=== PATIENT | male | born 1985 | race Caucasian/White ===

== ENCOUNTER 2023-12-24 06:12 | Day surgery (SDC) | payer OTHER, SELFPAY ==
[2023-12-24] VITALS (10 sets, daily range): BP systolic 112–125; BP diastolic 61–73; BMI 25.4
[2023-12-24] MEDS: TYLENOL 1000 MG PO (06:29)
[2023-12-24] MEDS: NORMOSOL-R 1000 IV (06:32)
--- NOTE | 2023-12-24 09:00 | W.SUR.PREOP ---
Pre-Operative Surgical Note
-
I have examined this patient prior to the performance of the scheduled procedure.
The patient's condition is unchanged from the time of the current History and
Physical and the patient is able to undergo the scheduled procedure.
--- NOTE | 2023-12-24 09:00 | W.IMMPOSTOP ---
Surgical Immed Post Op Note
-
Primary Surgeon: Crescencio Arnold MD
Assisting Surgeon: None
Pre-op Diagnosis: Left inguinal hernia, reducible
Post-op Diagnosis: Same
Procedure Performed: robotic left inguinal hernia repair with mesh (THEODORE approach)
Anesthesia Type: General
Specimen / Cultures: None
Estimated Blood Loss: 7 cc
Complications: None
Operative Findings: Small left indirect inguinal hernia, no direct or femoral components. Small Cord lipoma identified and removed. Floor reinforced with a large left Bard 3D max. Previous right-sided repair noted, mesh visibly folded under the
peritoneum but no evidence of recurrence
--- NOTE | 2023-12-24 09:06 | OR.RPT ---
Operative Report
Operative Report
Patient Name: Jerry Howard
: 1985
Date of Operation: 12/24/2023
Preoperative Diagnosis: Reducible Inguinal hernia, left
Postoperative Diagnosis: Same
Procedure(s):
Robotic Inguinal Hernia Repair with mesh, (THEODORE approach)
Surgeon(s):
Dr. Arnold
Sports Announcer(s):
BRYAN Farfan
Anesthesia: General
Estimated Blood Loss: 7 cc
Urine Output: None
Drains/Lines/Implants: Large 3D Max Bard mid weight mesh
Specimens: None
Indication for surgery: The patient has a history of groin pain and noted on exam to have a Left inguinal Hernia. Following review of therapeutic options they has elected to undergo a minimally invasive repair.
Findings at the time of surgery:
Patient had an Indirect inguinal Hernia. The inguinal floor was reinforced with a large BARD 3D max mid-weight mesh. His previous right-sided repair was noted, part of the mesh was folded underneath the peritoneum but there was no evidence of
recurrence.
Details of the operation:
The patient was brought to the Operating Room and placed in the supine position with the arms tucked. IV antibiotics were infused and Venodyne stockings placed. Following uneventful induction of general endotracheal anesthesia, an orogastric tube
were placed. The abdomen was prepped and draped in the usual sterile fashion. The abdomen was entered using a Veress technique which required 2 pass(es), pneumoperitoneum to 15 mmHg was obtained without difficulty. A 8mm trochar was passed through
the abdominal wall roughly 20 cm cephalad to the inguinal canal at his previous robotic port site. We then confirmed that no inadvertent injury was made while passing the trocar or Veress needle. We then placed two additional 8 mm ports in the
left upper and right upper quadrants, again at his previous incision sites. We then docked the robot with a Prograsper in the left hand port and monopolar scissors in the right. Small indirect inguinal defect was visibly noted. We did inspect the
right side which showed no sign of recurrence but clearly part of the tail of the mesh had folded underneath the peritoneum. We then began by creating a flap at the level of the ASIS laterally working our way medially to the medial umbilical fold.
Staying onto the peritoneum we were able to circumferentially dissect around the hernia sac and and peel it off of the underlying spermatic cord and testicular vessels, taking care to preserve them. Medially we identified the midline pubis as well
as Khurram's ligament and ensured to dissect 2 cm below the pubic rim over the bladder. After exposure of the entire myopectineal orifice we identified and reduced: A medium sized indirect inguinal hernia, no direct inguinal hernia, no femoral
hernia, a medium cord lipoma, which was removed
During placement of the mesh a small vessel near the pelvic brim just underneath coopers ligament began bleeding, the adamson mortise was quickly controlled with electrocautery but as a extra precaution a 2 x 2 cm piece of Surgicel was placed over
the area. We then fixated a large 3D max mesh with a 2-0 Vicryl stitch at coopers medially and superior laterally. The flap was then closed with a running 2-0 barbed monocryl suture ensuring that the tail was cut flush with the medial fat pad so
that no barbs were exposed. During the closure of the flap an Angiocath was inserted and 30 cc of quarter percent Marcaine was instilled. The area in the flap cavity was then evacuated of air confirming that the mesh was flush and there were no
folds. All needles and instruments were then removed and the robot was undocked. The abdomen was then desufflated, and pneumoperitoneum evacuated. All skin sites were then closed with 4-0 Monocryl followed by Dermabond. Counts were correct and
overall, the patient tolerated the procedure well and was taken to the Recovery Room postoperatively in stable condition.
I was the attending physician and performed the procedure with assistance of the HOSPITAL CLEANER above. I was present for all portions of the case
Crescencio Arnold MD
[2023-12-24] MEDS: DILAUDID 0.25 MG IV ×2 (09:19→09:31)
== END 2023-12-24 10:50 | disposition home or self-care (01) ==
LOC: SDS 06:12
PROVIDERS: ATTENDING PHYSICIAN Surgery
DX: K40.90 Unilateral inguinal hernia, without obstruction or gangrene, not specified as recurrent (principal)
CPT/HCPCS: 49650; C1781

== ENCOUNTER 2025-06-06 12:27 | Emergency (ER) | payer OTHER, SELFPAY ==
[2025-06-06 12:28] VITALS: BP 131/91
--- NOTE | 2025-06-06 13:45 | ED.GENMED ---
History of Present Illness
General
Chief Complaint: Musculo-Skeletal Complaint
Source: patient
Exam Limitations: none
Time Seen by Provider: 06/06/25 13:24
Nursing documentation reviewed up to this point in time: agreed with
History of Present Illness
History of Present Illness:
Patient is a 40-year-old male who presents the emergency department left ankle pain after mechanical fall while running earlier today. Patient reports taking his dog for a run when he was pulled in the opposite direction inverting his left ankle. He
remembers hearing a 'crunch'. He did not hit his head or sustain any other injuries.
Patient has been unable to bear weight on left foot since fall due to pain. He has been using crutches which he had at home. No numbness/tingling in LLE. No pain in left knee.
No other concerns today.
Past History
Social History
Tobacco: Non-smoker
Employment: Employed
Review of Systems
Review of Systems
Allergies reviewed?: Yes
All Other Systems: ROS reviewed and negative except as documented in HPI and ROS
Phy Exam
Physical Exam
Physical Exam:
Vitals: Patient's vital signs are stable. Afebrile
General: Patient is well appearing, no acute distress
Skin: Warm and dry, no rashes or lesions
Head: Normocephalic, atraumatic
Throat: Protecting airway
Neck: Normal ROM, no cervical spine tenderness
Cardiac: Regular rate
Pulm: No apparent respiratory distress
Abdomen: Nondistended
Extremities: Minimal swelling at medial aspect of left ankle. No obvious deformity of ecchymoses. Mild tenderness to left medial malleolus without pain to left lateral malleolus, midfoot, hindfoot, base of fifth metatarsal, calcaneus. Achilles
intact. Full ability to dorsiflexion/plantarflexion left ankle. 2+ palpable left DP pulse with normal capilaary refill.
Neuro: Grossly intact
Psychiatric: Normal affect.
Course
Orders/Labs/Results
Orders:
Orders
06/06/25 12:30
Ankle, left 3 view CR [CR Ankle - Left Min 3 Views ] Urgent
Comment:
Reason For Exam: injury
06/06/25 13:47
boot [Ortho Boot Left- Treatment] ONCE
Short or tall?: Tall
Vital Signs
Initial and Last Documented VS:
Initial Vital Signs
Temp Pulse Resp BP Pulse Ox
98 F 82 16 131/91 98
06/06/25 12:28 06/06/25 12:28 06/06/25 12:28 06/06/25 12:28 06/06/25 12:28
Last Documented Vital Signs
Temp Pulse Resp BP Pulse Ox
98 F 82 16 131/91 98
06/06/25 12:28 06/06/25 12:28 06/06/25 12:28 06/06/25 12:28 06/06/25 13:46
MDM/Problems Addressed
Differential Diagnosis Includes:
Not limited to: Ankle sprain, ankle fracture, Achilles tendon rupture, contusion, etc.
MDM/Problems Addressed:
40-year-old male with left ankle pain following mechanical inversion injury earlier today. No head strike or loss of consciousness. Vitals and exam as above. An x-ray of the left ankle was obtained without any evidence of acute fracture.
Ultimately�suspect ankle sprain. Will place patient in tall Ortho boot and advised rest, ice, compression, elevation, NSAIDs for pain. He does have crutches to assist with ambulation. Advised orthopedic follow-up if symptoms persist/worsen.
Return precautions discussed.
Chronic conditions affecting care:
N/A
Acute Exacerbation and/or Progression of Chronic Illness:
N/A
*Radiology
Radiology exam reviewed: preliminary read by ED provider (Ankle x-ray reviewed by me-no acute fracture) and radiology read reviewed
*Pulse Oximetry
SaO2: 98
Oxygen Mode of Delivery: Room air
Patient hypoxic: no
*EKG
Interpreted by ED Provider?: NA
*Technical Sales Manager Interpretation
Rate: Technical Sales Manager- N/A
*Critical Care Note
Total Time (30-74mins, 75-104mins- exclusive of procedures): Not Applicable
ED Attending Note
-
Portions of this chart may have been created with voice recognition software.� Occasional wrong word or��sound alike� substitutions may have occurred due to the inherent limitations of voice recognition software.
Discharge Plan
Departure
Patient Disposition: Home (Routine Discharge)
Date of Disposition: 06/06/25
Time of Disposition: 13:54
Patient with high blood pressure during this ER visit?: Yes
Discharge Problem:
Injury of left ankle
Instructions: Ankle sprain - ED discharge instructions, BLOOD PRESSURE
Prescriptions:
No Action
multivitamin 1 EACH tablet
1 ea PO DAILY
fluticasone propionate 1 SPRAY spray,suspension
1 spray intranasal PRN PRN (Reason: allergies)
acetaminophen [acetaminophen] 325 mg tablet
650 mg PO Q6HPRN PRN (Reason: mild pain) Qty: 14 0RF
ibuprofen 600 mg tablet
600 mg PO Q6H PRN (Reason: pain) Qty: 14 0RF
Referrals:
Brisa Matthews MD [Family Provider, Internal Medicine]
Activity Restrictions/Additional Instructions:
RETURN TO THE EMERGENCY DEPARTMENT WITH ANY INTRACTABLE PAIN, NUMBNESS/TINGLING IN LEFT LOWER LEG, WORSENING CURRENT SYMPTOMS, OR ANY OTHER CONCERNS
- I did not see any evidence of an acute fracture on the x-ray of your left ankle today. You may have sustained an ankle sprain.
- Please wear Ortho boot and continue to ice, elevate ankle often over the next 2 days. You can use crutches as needed for ambulation. Take Tylenol/NSAIDs for pain.
- Follow-up with primary care/orthopedics for further evaluation/management if symptoms persist/worsen
Monitor your symptoms closely and return to the emergency department with any acute worsening/new symptoms or any other concerns
Interventions
Interventions:
*Risk Screen - Suicide Last Done: 06/06/25 12:31
*Neglect/Abuse Screening Last Done: 06/06/25 12:31
*Nursing Disposition Last Done: 06/06/25 14:20
ED-Musculoskeletal Assessment Last Done: 06/06/25 14:18
Discharge Date and Time
Discharge Date/Time: 06/06/25 14:21
Print Language: UPPER SORBIAN
== END 2025-06-06 14:21 | disposition home or self-care (01) ==
LOC: EMR 12:27
PROVIDERS: EMERGENCY PHYSICIAN Student in an Organized Health Care Education/Training Program; FAMILY PHYSICIAN Internal Medicine
DX: S99.912A Unspecified injury of left ankle, initial encounter (principal); W19.XXXA Unspecified fall, initial encounter; Y93.02 Activity, running
CPT/HCPCS: 99283; 73610